=== PATIENT | female | born 1940 | race Caucasian/White ===

== ENCOUNTER 2019-05-06 08:22 | Outpatient (CLI) | payer OTHER, SELFPAY ==
--- NOTE | ~2019-05-06 | US_ITS ---
EXAMINATION: US art doppler w press LE BI DATE: 05/06/2019 09:24 INDICATION: Peripheral vascular disease. TECHNIQUE: Segmental pressures and plethysmographic and Doppler waveforms of the brachial and lower e xtremity arteries were obtained. COMPARISON: None. FINDINGS: Right and left brachial artery pressures of 150 mm Hg and 154 mm Hg, respectively, are concordant (no rmal difference <= 30 mmHg). The right high thigh pressure index is 1.20 (normal > 1.2). The left hig h thigh pressure index was unable to be obtained due to inability to occlude the vessel. The right ankle-brachial index (SUKUMAR) is 1.01 (normal >= 0.9-1). The right great toe-brachial index (T BI) is 0.75 (normal >= 0.6-0.8). The right lower extremity segmental pressure gradients are increased between the right dorsalis pedis artery and the rcudz-btu-cjeu right popliteal artery (normal gradie nts <= 20-30 mmHg between adjacent levels on the same leg or the same levels on the two legs). Arteri al waveforms are biphasic with brisk systolic upstrokes throughout. The left SUKUMAR is 0.97. The left TBI is 1.02. The left lower extremity segmental pressure gradients are increased between the left dorsalis pedis artery and the left tqxdi-yrr-twtn popliteal artery. Arter ial waveforms are biphasic with brisk systolic upstrokes throughout. IMPRESSION: 1. Normal bilateral ABIs and TBI's. No significant occlusive disease. Reviewed, dictated and finalized at location A. 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
== END 2019-05-06 08:23 | disposition home or self-care (01) ==
PROVIDERS: PCP Emergency Medicine; Visit Provider Emergency Medicine
DX: I73.9 Peripheral vascular disease, unspecified (principal)
CPT/HCPCS: 93923

== ENCOUNTER 2020-01-12 08:44 | Outpatient (CLI) | payer OTHER, SELFPAY ==
--- NOTE | ~2020-01-12 | MM_ITS ---
EXAMINATION: MM screening [facility] BI w ever HISTORY: Screening mammogram TECHNIQUE: Craniocaudal and mediolateral oblique 3-D tomosynthesis images were obtained and synthetic 2-D images were generated. CAD analysis was submitted and interpreted. COMPARISON: 11/18/2018, 10/24/2018, 07/31/2017, 07/04/2016 BREAST PARENCHYMAL COMPOSITION: There are scattered areas of fibroglandular density. FINDINGS: There is no evidence of suspicious mass, calcification, or architectural distortion to sugg est malignancy in either breast. There has been no suspicious interval change. IMPRESSION: 1. No mammographic evidence of malignancy. 2. Recommend routine screening mammography in one year. BI-RADS Category 1: Negative Reviewed, dictated and finalized at location A. E RUNNER
--- NOTE | ~2020-01-12 | DEXA_ITS ---
Bone Density Report Name: Tawana Cohen Age: 79 Sex: Female Ethnicity: White Date of : 1940 Indication: postmenopausal osteoporosis; monitoring treatment; height loss; prior fracture; Referring Provider: ANGELITO DAN Study: Bone densitometry was performed. Exam Date: January 12, 2020 Accession number: [id number] Bone Density: Region BMD T-score Z-score Classification AP Spine (L1-L4) 0.849 -1.8 0.9 Osteopenia Femoral Neck (Left) 0.644 -1.8 0.5 Osteopenia Total Hip (Left) 0.747 -1.6 0.5 Osteopenia Total Hip Bilateral Avg 0.751 -1.6 0.5 Osteopenia Femoral Neck (Right) 0.783 -0.6 1.7 Normal Total Hip (Right) 0.754 -1.5 0.5 Osteopenia World Health Organization criteria for BMD impression classify patients as: Normal (T-score at or above -1.0), Osteopenia (T-score between -1.0 and -2.5), or Osteoporosis (T-score at or below -2.5). 10-year Fracture Risk: FRAX not reported because: Treated for osteoporosis Previous Exams: Region Exam Age BMD T-score BMD Change BMD Change Date g/cm2 vs Baseline vs Previous AP Spine(L1-L4) 01/12/2020 79 0.849 -1.8 0.085(11.1%)# 0.085(11.1%)# 02/14/2008 67 0.764 -2.6 Total Hip(Left) 01/12/2020 79 0.747 -1.6 -0.004(-0.6%)# -0.004(-0.6%)# 02/14/2008 67 0.752 -1.6 Total Hip(Right) 01/12/2020 79 0.754 -1.5 -0.073(-8.8%)# -0.073(-8.8%)# 02/14/2008 67 0.827 -0.9 *Denotes significance at 95% confidence level, LSC for AP Spine = 0.022 g/cm2, LSC for Total Hip = 0.027 g/cm2 Clinical Information Provided by Patient: Has had a low trauma fracture Smokes Is being treated for osteoporosis Has used the following medications: Fosamax (i.e. alendronate) Patient maximum height was 63 Menopause Age: 49 Drinks caffeinated beverages Onset of menses at age 12 Number of children 5 Impression: The patient has low bone mass, based on the Total Spine T-score. The patient has risk factors, including: smoking, previous fracture. No significant bone loss was observed. Discussion: PATIENT UNDER TREATMENT WITH NO SIGNIFICANT BMD LOSS SINCE LAST EXAM. In an untreated patient, BMD typically declines with age. A lack of decline or gain is usually a sign that treatment is efficacious and fracture risk is reduced. It is important to ask patients whether they are taking their medications and to encourage continued and appropriate compliance with their osteoporosis therapies to reduce fracture risk. It is also impor
== END 2020-01-12 08:45 | disposition home or self-care (01) ==
LOC: ANHIMG 08:46
PROVIDERS: PCP Emergency Medicine; Visit Provider Emergency Medicine
DX: Z12.31 Encounter for screening mammogram for malignant neoplasm of breast (principal); Z78.0 Asymptomatic menopausal state; M85.89 Other specified disorders of bone density and structure, multiple sites
CPT/HCPCS: 77063; 77067; 77080

== ENCOUNTER 2020-06-07 14:58 | Outpatient (CLI) | payer OTHER, SELFPAY ==
--- NOTE | ~2020-06-07 | XR_ITS ---
EXAMINATION: XR wrist RT 2V EXAM DATE: 06/07/2020 15:21 INDICATION: S69.90XA - Unspecified injury of unspecified right wrist, hand. Initial encounter. TECHNIQUE: Frontal and lateral projections of the right wrist. There is no prior study for comparis on. FINDINGS: There is mildly widened right scapholunate joint space, at least partial dissociation. Thi s is most likely chronic but no prior study to determine. There is mild to moderate triscaphe, 1st ca rpometacarpal and 3rd MCP primary osteoarthritis. There are no bony erosions identified. There are no acute fractures or dislocations identified. There is no subcutaneous gas. The soft tissue is unrem arkable. There are no radiopaque foreign bodies. IMPRESSION: 1. 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 2. Mild to moderate polyarticular osteoarthritis as above. Reviewed, dictated and finalized at location A.
--- NOTE | ~2020-06-07 | XR_ITS ---
EXAMINATION: XR shoulder RT min 2V EXAM DATE: 06/07/2020 15:22 INDICATION: Initial encounter following injury, with pain of the right shoulder, upper arm TECHNIQUE: The following right shoulder projections obtained: frontal projection with internal rotati on, frontal projection with external rotation, Grashey, and scapular Y view (4+ views). Comparison is made to prior examination from 10/25/2009. FINDINGS: No evidence of right shoulder rotator cuff calcific tendinosis. There is mild glenohumer al, moderate acromioclavicular joint primary osteoarthritis. There are no acute fractures or dislocat ions identified. There is no subcutaneous gas. The soft tissue is unremarkable. There are no radi opaque foreign bodies. Compared to 2009, some progression in the osteoarthritis. IMPRESSION: 1. Right shoulder exam without acute osseous findings. 2. Osteoarthritis. Reviewed, dictated and finalized at location A.
== END 2020-06-07 14:59 | disposition home or self-care (01) ==
LOC: ANHIMG 15:04
PROVIDERS: PCP Emergency Medicine; Visit Provider Emergency Medicine
DX: M19.011 Primary osteoarthritis, right shoulder (principal); M19.031 Primary osteoarthritis, right wrist
CPT/HCPCS: 73030; 73100

== ENCOUNTER 2020-06-18 14:50 | Outpatient (CLI) | payer OTHER, SELFPAY ==
--- NOTE | ~2020-06-18 | MR_ITS ---
EXAMINATION: MR shoulder RT wo con DATE: 06/18/2020 15:42 INDICATION: Right shoulder pain post fall TECHNIQUE: Magnetic resonance imaging (MRI) of the right shoulder was performed without intravenous c ontrast. Sequences included axial PD-weighted FS FSE, coronal oblique PD-weighted FS FSE, coronal obl ique T2-weighted FS FSE, sagittal PD-weighted FS FSE, and sagittal T1-weighted SE. COMPARISON: None. FINDINGS: Coracoacromial arch: The acromion undersurface is curved in morphology (type II). Small anterior subacromial spur at the i nsertion of the otherwise normal coracoacromial ligament. Moderate acromioclavicular osteoarthritis. Rotator cuff: Severe supraspinatus, moderate infraspinatus and mild subscapularis tendinopathy. Small full-thicknes s tear measuring 6 mm AP and medial lateral near the superior facet footplate of the supraspinatus te ndon with small amount of residual frayed tendon material at the footplate. The teres minor tendon is normal. Normal rotator cuff muscle bulk and signal. Biceps tendon, glenoid labrum and glenohumeral cartilage: Long head of the biceps tendon is normal. Glenoid labrum is normal. Mild partial thickness cartilage loss with smooth chondral surface along the apex and inferomedial margin of the humeral head. Glenoid cartilage is normal. Fluid: Moderate-sized glenohumeral joint effusion with proportional extension of fluid into the long head bi ceps tendon sheath, deep subscapular bursa and into the subacromial/subdeltoid bursa through the full -thickness rotator cuff tear. No loose osteochondral bodies. Bones: Mild marrow edema and degenerative cystic change along the greater tuberosity footplate of the supras pinatus and infraspinatus tendons likely related to chronic rotator cuff disease. Marrow signal is ot herwise normal. No fracture or pathologic marrow replacing process. IMPRESSION: 1. Severe supraspinatus tendinopathy with small full-thickness tear near its superior facet footplate . 2. Mild glenohumeral and moderate acromioclavicular osteoarthritis. 3. Moderate sized glenohumeral joint effusion with extension through the rotator cuff tear into the s ubacromial/subdeltoid bursa. Reviewed, dictated and finalized at location A. IMPRESSION: 1. Severe supraspinatus tendinopathy with small full-thickness tear near its kendrick perior facet footplate. 2. Mild glenohumeral and moderate acromioclavicular osteoarthritis. 3. Moderate sized glenohumeral joint effusion with extension through the rotato r cuff tear into the subacromial/subdeltoid bursa.
== END 2020-06-18 14:51 | disposition home or self-care (01) ==
PROVIDERS: PCP Emergency Medicine; Visit Provider Emergency Medicine
DX: S49.90XA Unspecified injury of shoulder and upper arm, unspecified arm, initial encounter (principal); M25.519 Pain in unspecified shoulder; M75.81 Other shoulder lesions, right shoulder; M75.101 Unspecified rotator cuff tear or rupture of right shoulder, not specified as traumatic; M19.011 Primary osteoarthritis, right shoulder; M25.411 Effusion, right shoulder
CPT/HCPCS: 73221

== ENCOUNTER 2020-08-19 10:24 | Emergency (ER) | payer OTHER, SELFPAY ==
--- NOTE | ~2020-08-19 | XR_ITS ---
EXAMINATION: XR tibia fibula LT 2V, XR foot LT min 3V DATE: 08/19/2020 11:02 INDICATION: Pain at the anterolateral distal left tibia/fibula and pain and bruising at the lateral l eft foot post fall 4 days prior TECHNIQUE: 1. Anteroposterior and lateral views of the affected tibia and fibula were obtained. 2. Dorsal plantar, lateral and 2 oblique views of the left foot were obtained. COMPARISON: None. FINDINGS: Bone alignment is normal from the left knee through the left foot and ankle. There are couple tiny os sific densities at the tip of the lateral malleolus which could represent either heterotopic ossifica tion related to chronic sprain or small age-indeterminate avulsion fracture fragments. No other lesio ns suspicious for fracture identified. Mild polyarticular osteoarthritis involving multiple joints th roughout the left foot. Joint spaces appear grossly preserved at the left knee and ankle on nonweight bearing imaging. No left knee or ankle joint effusions. Soft tissue swelling at the medial side of th e knee and along the lateral aspect of the distal lower leg and ankle. IMPRESSION: 1. A couple tiny ossific densities at the tip of the lateral malleolus which could represent either h eterotopic ossification related to chronic sprain or small minimally distracted age-indeterminate avu lsion fracture fragments. No other acute osseous abnormality. 2. Mild polyarticular osteoarthritis involving multiple joints throughout the left foot. Reviewed, dictated and finalized at location A. IMPRESSION: 1. A couple tiny ossific densities at the tip of the lateral malleolus which co uld represent either heterotopic ossification related to chronic sprain or smal l minimally distracted age-indeterminate avulsion fracture fragments. No other acute osseous abnormality. 2. Mild polyarticular osteoarthritis involving multiple joints throughout the l eft foot.
[2020-08-19 10:36] VITALS: BP 112/69; PULSE 74; RESP 16; TEMP 36.7; O2SAT 100
--- NOTE | 2020-08-19 10:42 | ED.LOWEXIN ---
HPI - Extremity Injury (Lower) General Chief Complaint: Extremity Injury, Lower Stated Complaint: lt ankle/foot injury Time Seen by Provider: 08/19/20 10:37 Source: patient and RN notes reviewed Mode of arrival: ambulatory History of Present Illness HPI Narrative: 79-year-old female presents to the [facility] with complaints of left lower extremity bruising, left ankle swelling after stepping in a hole and rolling her ankle on Sunday, 4 days ago. Sensation intact toes, lateral, medial aspect of foot. Positive pedal pulse. Significant bruising is noted from her toes all the way up to mid calf. Tenderness to the lateral malleolus and mid fifth metatarsal. With a cane, which she normally does. Related Data Home Medications Medication Instructions Recorded Confirmed Lactobacillus acidophilus 10 See Rx Instructions .ROUTE 02/14/19 08/19/20 billion cell capsule .COMPLEX cap ascorbic acid (vitamin C) 1,000 mg See Rx Instructions .ROUTE .COMPLEX 02/14/19 08/19/20 tablet,extended release aspirin 81 mg chewable tablet 81 mg PO DAILY 02/14/19 08/19/20 blood sugar diagnostic #10 each 02/14/19 08/19/20 fish oil-dha-epa 1,200 mg-144 1 cap PO DAILY cap 02/14/19 08/19/20 mg-216 mg capsule glucosamine sulfate 500 mg capsule 500 mg PO BID 02/14/19 08/19/20 lancets #50 each 02/14/19 08/19/20 multivitamin 1 tablet PO DAILY 02/14/19 08/19/20 vitamins A,C,F-avxw-yczavw 7,160 2 tablet PO BID 02/14/19 08/19/20 unit-113 mg-100 unit tablet calcium carbonate 600 mg calcium 600 mg PO BID 01/02/20 08/19/20 (1,500 mg) tablet gelatin See Rx Instructions PO .COMPLEX 06/24/20 08/19/20 latanoprost 0.005 % eye drops 1 drp EACH EYE DAILY 06/24/20 08/19/20 Allergies Allergy/AdvReac Type Severity Reaction Status Date / Time No Known Allergies Allergy Verified 08/19/20 10:35 Review of Systems Review of Systems: All systems reviewed & are unremarkable except as noted in HPI and below Constitutional: Constitutional: Reports no additional constitutional complaints, Denies chills, Denies fatigue, Denies fever(s) and Denies weakness Cardiovascular: Cardiovascular: Reports no additional cardiovascular complaints and Denies chest pain Respiratory: Respiratory: Reports no additional respiratory complaints, Denies cough, Denies dyspnea and Denies wheezing Musculoskeletal: Musculoskeletal: Reports as per HPI, Reports arthralgias (Left ankle) and Reports joint swelling (Left ankle and foot) Integumentary/Breasts: Skin/Breast: Reports as per HPI and Denies rash Comments: Bruising mid calf to to her toes Neurologic: Reports system reviewed and no additional complaints, except as documented, Denies dizziness, Denies syncope, Denies headache(s), Denies focal weakness, Denies numbness and Denies weakness Psychiatric: Psychiatric: Reports no additional psychiatric complaints Endocrine: Endocrine: Reports no additional endocrine complaints Allergic/Immunologic: Allergic/Immunologic: Reports no additional allergic/immunologic complaints PMFSH Past Medical History Medical History Arthritis Corneal dystrophy Diabetes mellitus HTN (hypertension) Osteoporosis Right rotator cuff tendinitis Wears glasses Weight gain Surgical History Surgical History History of appendectomy History of bilateral cataract extraction History of cholecystectomy Family History Family History Sibling Family history of lung cancer, Onset Age: 68 Family history of heart disease in male family member before age 55 Cerebrovascular accident, Onset Age: 84 Father Family history of malignant neoplasm of bone, Onset Age: 66 Patient's father is Family history of malignant neoplasm of brain, Onset Age: 66 Other Arthritis Depression Heart disease Hypertension Social History Socia
== END 2020-08-19 11:48 | disposition home or self-care (01) ==
PROVIDERS: Emergency Provider Nurse Practitioner; PCP Emergency Medicine
DX: S82.65XA Nondisplaced fracture of lateral malleolus of left fibula, initial encounter for closed fracture (principal); S92.355A Nondisplaced fracture of fifth metatarsal bone, left foot, initial encounter for closed fracture; X50.9XXA Other and unspecified overexertion or strenuous movements or postures, initial encounter; F41.9 Anxiety disorder, unspecified; H18.509 Unspecified hereditary corneal dystrophies, unspecified eye; E11.9 Type 2 diabetes mellitus without complications; I10 Essential (primary) hypertension; M81.0 Age-related osteoporosis without current pathological fracture; Z98.42 Cataract extraction status, left eye; Z98.41 Cataract extraction status, right eye; F17.210 Nicotine dependence, cigarettes, uncomplicated
CPT/HCPCS: 29515; 73590; 73630; 99214; G0463

== ENCOUNTER 2021-06-27 10:05 | Outpatient (CLI) | payer OTHER, SELFPAY ==
--- NOTE | ~2021-06-27 | MM_ITS ---
EXAMINATION: MM screening [facility] BI w ever HISTORY: Screening TECHNIQUE: Craniocaudal and mediolateral oblique 3-D tomosynthesis images were obtained and synthetic 2-D images were generated. CAD analysis was submitted and interpreted. COMPARISON: Comparison to multiple prior studies sequentially, with oldest reviewed study dated 04/2016. BREAST PARENCHYMAL COMPOSITION: There are scattered areas of fibroglandular density. FINDINGS: There is no evidence of suspicious mass, calcification, or architectural distortion to sugg est malignancy in either breast. There has been no suspicious interval change. IMPRESSION: 1. No mammographic evidence of malignancy. 2. Recommend routine screening mammography in one year. BI-RADS Category 1: Negative Reviewed, dictated and finalized at location A.
== END 2021-06-27 10:06 | disposition home or self-care (01) ==
LOC: ANHIMG 10:06
PROVIDERS: PCP Emergency Medicine; Visit Provider Emergency Medicine
DX: Z12.31 Encounter for screening mammogram for malignant neoplasm of breast (principal)
CPT/HCPCS: 77063; 77067

== ENCOUNTER → 2022-01-12 09:32 | Outpatient (CLI) | payer OTHER, SELFPAY ==
--- NOTE | ~2022-01-12 | DEXA_ITS ---
Bone Density Report Name: KANIKA HEARN I Age: 81 Sex: Female Ethnicity: White Date of : 1940 Indication: postmenopausal osteoporosis; monitoring treatment; height loss; prior fracture; Referring Provider: ANGELITO DAN Study: Bone densitometry was performed. Exam Date: January 12, 2022 Accession number: [id number] Bone Density: Region BMD T-score Z-score Classification AP Spine (L1-L4) 0.877 -1.5 1.2 Osteopenia Femoral Neck (Left) 0.634 -1.9 0.5 Osteopenia Total Hip (Left) 0.772 -1.4 0.8 Osteopenia Femoral Neck (Right) 0.819 -0.3 2.1 Normal Total Hip (Right) 0.832 -0.9 1.3 Normal Total Hip Mean 0.802 -1.2 1.1 Osteopenia World Health Organization criteria for BMD impression classify patients as: Normal (T-score at or above -1.0), Osteopenia (T-score between -1.0 and -2.5), or Osteoporosis (T-score at or below -2.5). 10-year Fracture Risk: FRAX not reported because: Treated for osteoporosis Previous Exams: Region Exam Age BMD T-score BMD Change BMD Change Date g/cm2 vs Baseline vs Previous AP Spine(L1-L4) 01/12/2022 81 0.877 -1.5 0.075* 0.101* 12/17/2017 77 0.776 -2.5 -0.026* -0.023* 08/11/2015 74 0.799 -2.3 -0.003 -0.003 11/02/2010 69 0.802 -2.2 Total Hip(Left) 01/12/2022 81 0.772 -1.4 0.010 0.043* 12/17/2017 77 0.729 -1.7 -0.033* -0.007 08/11/2015 74 0.736 -1.7 -0.026 -0.026 11/02/2010 69 0.762 -1.5 Total Hip(Right) 01/12/2022 81 0.832 -0.9 0.004 0.053* 12/17/2017 77 0.779 -1.3 -0.050* -0.011 08/11/2015 74 0.790 -1.2 -0.038* -0.038* 11/02/2010 69 0.829 -0.9 *Denotes significance at 95% confidence level, LSC for AP Spine = 0.022 g/cm2, LSC for Total Hip = 0.027 g/cm2 Clinical Information Provided by Patient: Has had a low trauma fracture Is being treated for osteoporosis Has used the following medications: Fosamax (i.e. alendronate), Vitamin D, Calcium Patient maximum height was 63 Menopause Age: 48 Does not regularly consume dairy products Drinks caffeinated beverages Onset of menses at age 13 Number of children 5 Impression: The patient has low bone mass, based on the Left Femoral Neck T-score. The patient has risk factors, including: previous fracture. No significant bone loss was observed. Discussion: ALDO
== END ==
PROVIDERS: PCP Emergency Medicine; Visit Provider Emergency Medicine
DX: Z78.0 Asymptomatic menopausal state (principal); M85.89 Other specified disorders of bone density and structure, multiple sites
CPT/HCPCS: 77080

== ENCOUNTER 2022-08-11 08:49 | Inpatient (IN) | payer OTHER, SELFPAY ==
[2022-08-11] VITALS (7 sets, daily range): BP systolic 137–163; BP diastolic 54–84; PULSE 59–98; RESP 14–19; TEMP 36.2–36.5; O2SAT 98–100
--- NOTE | ~2022-08-11 | CT_ITS ---
EXAMINATION: CT abdomen pelvis w con DATE: 08/11/2022 10:03 INDICATION: Abdominal pain. Blood in stool. TECHNIQUE: Computed tomography (CT) of the abdomen and pelvis was performed with 100 mL Omnipaque 350 intravenous contrast. Automated exposure control and iterative reconstruction technique were employe d. The dose-length product was 409.03 mGy-cm. COMPARISON: None. FINDINGS: The visualized portions of the lung bases demonstrate mild atelectasis. No pleural effusion . The heart size is normal. There are coronary artery calcifications. No pericardial effusion. There is mild intrahepatic biliary duct dilatation, likely secondary to cholecystectomy. The spleen, pancre as, and adrenal glands are normal. There are cysts in the kidneys measuring up to 1.4 cm on the left. There is calcified atherosclerosis of the aorta and many of the other arteries. 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 There is no significant stenosis of superior mesenteric artery or infer ior mesenteric artery. There are scattered diverticula in the colon. There is wall thickening of the sigmoid colon and descending colon with adjacent mild fat stranding, consistent with colitis. There a re no dilated loops of bowel. The appendix is not visualized. There are no pathologically enlarged ly mph nodes. There is no free intraperitoneal fluid. There is severe lumbar spondylosis. IMPRESSION: 1. Colitis involving descending and sigmoid colon. Reviewed, dictated and finalized at location A.
--- NOTE | 2022-08-11 09:10 | ED.GENADULT ---
HPI - General Adult General Chief complaint: GI Bleed Stated complaint: abd pain, GI bleed, nausea Time Seen by Provider: 08/11/22 08:54 Source: patient Mode of arrival: ambulatory Limitations: no limitations History of Present Illness HPI narrative: This 81-year-old female patient with significant past medical history of diverticulosis, diabetes mellitus 2, hypertension and hyperlipidemia presents to the emergency room independently ambulatory without deficits with complaints of having a history of 1 week of abdominal pain that is across the lower abdomen without radiation to the back. She endorses that the pain has gradually increased in intensity and has now become constant, sharp and unrelenting. She currently rates her pain is a 7/10. There is no radiation of the pain. This morning when she had a bowel movement she noted bright red blood in the toilet. She has had accompanying nausea, vomiting and diarrhea. She has been afebrile at home subjectively and has no chest pain, dyspnea or urinary complaints of burning, urgency or frequency. No known ill contacts and she has not eaten any new foods specifically with seads. Related Data Home Medications Medication Instructions Recorded Confirmed Lactobacillus acidophilus 10 See Rx Instructions .Route .COMPLEX 02/14/19 04/27/21 billion cell capsule (Probiotic) ascorbic acid (vitamin C) 1,000 mg See Rx Instructions .Route .COMPLEX 02/14/19 04/27/21 tablet,extended release aspirin 81 mg chewable tablet 81 mg PO DAILY 02/14/19 04/27/21 blood sugar diagnostic (Contour #10 ea 02/14/19 04/27/21 Next Test Strips) fish oil-dha-epa 1,200 mg-144 1 cap PO DAILY 02/14/19 04/27/21 mg-216 mg capsule glucosamine sulfate 500 mg capsule 500 mg PO BID 02/14/19 04/27/21 lancets (Microlet Lancet) #50 ea 02/14/19 04/27/21 multivitamin 1 tablet PO DAILY 02/14/19 04/27/21 vitamins A,C,K-gwkf-lozwyt 2,148 2 tablet PO BID 02/14/19 04/27/21 mcg-113 mg-45 mg-17.4 mg tablet (PreserVision AREDS) calcium carbonate 600 mg calcium 600 mg PO BID 01/02/20 04/27/21 (1,500 mg) tablet gelatin See Rx Instructions PO .COMPLEX 06/24/20 04/27/21 latanoprost 0.005 % eye drops 1 drp EACH EYE DAILY 06/24/20 04/27/21 Allergies Allergy/AdvReac Type Severity Reaction Status Date / Time No Known Allergies Allergy Verified 08/11/22 09:04 Review of Systems Review of Systems: Twelve point review of systems was obtained and is negative with exception what is noted in HPI. 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 Diabetes mellitus Fracture of one rib of left side HTN (hypertension) Hyperglycemia Left hip pain Osteoporosis Other chronic pain Right rotator cuff tendinitis Skin lesion Trochanteric bursitis, right hip Vitamin D deficiency Wears glasses Weight gain Surgical History Surgical History History of appendectomy History of bilateral cataract extraction History of cholecystectomy Family History Family History Sibling Family history of lung cancer, Onset Age: 68 Family history of heart disease in male family member before age 55 Cerebrovascular accident, Onset Age: 84 Father Family history of malignant neoplasm of bone, Onset Age: 66 Patient's father is Family history of malignant neoplasm of brain, Onset Age: 66 Mother Arthritis Other Depression Heart disease Hypertension Social History Social History (R
[2022-08-11 09:29] LABS: Appearance Urine Clear (Clear); Bacteria Urine None Seen /hpf; Bilirubin Urine Negative (Negative); Blood Urine 2+ (Negative); Color Urine Dark Yellow (Yellow); Glucose Urine UA Trace mg/dL (Negative); Ketones Urine 1+ mg/dL (Negative); Leukocyte Esterase Ur Negative LEU/UL (Negative); Nitrate Urine Negative (Negative); Non Pathogenic Casts 0-2; Protein Urine Trace mg/dL (Negative); Specific Grav Ur 1.023 (1.001-1.035); Squamous Epithelial Cell Urine None seen /hpf (Few); Urobilinogen Urine 0.2 mg/dL (<2.0); WBC Urine 0-5 /hpf; pH Urine 5.5 (5.0-9.0)
[2022-08-11 09:34] LABS: Basophils Absolute Auto 0.1 K/mm3 (0.0-0.1); Basophils Percent Auto 0.4 % (0.2-1.2); Eosinophils Percent Auto 0.2 % (0-4.4); Hematocrit 44.2 % (37.0-47.0); Hemoglobin 14.5 g/dL (12.0-15.0); Immature Granulocyte Absolute 0.11 K/mm3 (0.00-0.031); Immature Granulocyte Percent A 0.8 % (0-0.5); Lymphocytes Absolute Auto 2.15 K/mm3 (0.9-3.2); Mean Corpuscular HGB Conc 32.8 g/dl (32-36); Mean Corpuscular Hemoglobin 30.9 pg (26-34); Mean Corpuscular Volume 94.2 fl (80-100); Mean Platelet Volume 11.6 fl (7.4-10.4); Monocytes Absolute Auto 0.9 K/mm3 (0.1-0.6); Monocytes Percent Auto 6.5 % (2.6-8.5); Neutrophils Percent Auto 77.1 % (45.5-73.1); Platelet Count Result 279 k/mm3 (150-375); Red Blood Count 4.69 M/mm3 (4.2-5.4); Red Cell Distribution Width 12.5 % (11.5-14.5); White Blood Count 14.3 K/mm3 (4.5-10.0)
[2022-08-11 09:37] LABS: Add Urine Microscopic? YES
[2022-08-11 09:41] LABS: Alanine Aminotransferase 27 U/L (6-35); Albumin Level 4.7 g/dL (3.5-5.1); Alkaline Phosphatase 69 U/L (38-126); Anion Gap 7 mmol/L (8-16); Aspartate Amino Transferase 33 U/L (14-36); Bilirubin,Total 0.8 mg/dL (0.2-1.3); Blood Urea Nitrogen 23 mg/dL (7-17); Calcium 9.3 mg/dL (8.4-10.2); Carbon Dioxide 28 mmol/L (22-30); Chloride 103 mmol/L (98-107); Estimated CRCL calculation 39 ml/min; Estimated Glomerular Filt Rate 60; Glucose 217 mg/dL (65-110); Lipase 99 U/L (23-300); Potassium 3.7 mmol/L (3.4-5.0); Sodium 138 mmol/L (137-145)
[2022-08-11 09:50] LABS: INR 0.9; Prothrombin Time 12.2 Seconds (11.1-14.7)
[2022-08-11 09:51] LABS: Partial Thromboplastin Time 27.2 SECONDS (22.3-36.8)
[2022-08-11] MEDS: SODIUM CHLORIDE 0.9% IV 1,000 ML 999 ML IV CONT (10:05)
[2022-08-11] MEDS: ONDANSETRON INJ 4 MG/2 ML VIAL IV PUSH (10:06)
[2022-08-11] MEDS: fentaNYL CITRATE INJ (*CRX) 100 MCG/2 ML VIAL 25 MCG IV PUSH (10:06)
[2022-08-11] MEDS: PIPERACILLN/TAZ 3.375GM/NS50ML 3.375 GM/50 ML BAG IVPB ×2 (10:38→20:43)
[2022-08-11 13:01] LABS: Glucose Point of Care 97 mg/dl (65-105)
--- NOTE | 2022-08-11 13:03 | ADMGEN ---
This patient, Tawana Cohen, was admitted to 3 [facility] Surg Room 316-02. Patient/family oriented to hospital policies and general routines including ID bracelet, bed and alarms, visiting hours, pain management, procedures, bathroom and other care routines, personal items, smoking policy, room service/diet, and visiting hours. Information on how to activate the Rapid Response Team has been discussed. Patient/Family are encouraged to report perceived risks to care and to ask questions if they do not understand what they are told or what they should do.
[2022-08-11] MEDS: SODIUM CHLORIDE 0.9% IV 1,000 ML 125 ML IV CONT (13:34)
--- NOTE | 2022-08-11 14:41 | PM.IMHP ---
H&P: HPI History of Present Illness Date/Time: 08/11/22 15:30 Chief Complaint: Abdominal pain and rectal bleeding. Narrative: This is an 81-year-old female with history of diverticulosis, type 2 diabetes mellitus, hypertension, and hyperlipidemia presented to the emergency department via private vehicle from home for evaluation of abdominal pain and rectal bleeding. She has not been feeling well for approximately 1 week with fairly constant and nonradiating lower abdominal cramping which is occasionally sharp and shooting in nature, rated 7/10 at the worst. She reports alternating issues with constipation and diarrhea in the same time frame; she typically has 1 normal bowel movement a day. Last night her symptoms seemed to worsen and she was up to the bathroom 4 or 5 times though she only passed a small amount of loose stools each time. She did not sleep well due to her symptoms and she reports having nausea and cold sweats overnight. She had some bloating earlier on this week but that has since improved. She has had some episodes of nonbloody and nonbilious emesis as well. This morning she had bright red blood in the stool and she came in for evaluation. She denies straining to have bowel movements. She denies recent travel, recent antibiotic use, sick contacts. She has never had similar symptoms. In the ED: She has been afebrile with stable vital signs. Pertinent labs include a WBC count of 14.3, electrolytes, BUN 23, creatinine 0.80, glucose 217. Coags, LFTs, and electrolytes were normal. CT of the abdomen and pelvis showed colitis involving the descending and sigmoid colon. She was given a dose of Zosyn and she is being admitted in this setting for IV antibiotics. Review of Systems Review of Systems: Twelve systems were reviewed and are negative except for as per HPI. [facility] Past Medical History Medical History (Updated 08/11/22 @ 14:50 by Thao Caruso PA-C) Arthritis Bilateral carotid bruits Bilateral low back pain without sciatica Cerebrovascular accident (1999) No residual deficits. Corneal dystrophy Hyperlipidemia Hypertension Osteoporosis Other chronic pain Type 2 diabetes mellitus Vitamin D deficiency Wears glasses Surgical History Surgical History History of appendectomy History of bilateral cataract extraction History of cholecystectomy Family History Family History Sibling Family history of lung cancer, Onset Age: 68 Family history of heart disease in male family member before age 55 Cerebrovascular accident, Onset Age: 84 Father Family history of malignant neoplasm of bone, Onset Age: 66 Patient's father is Family history of malignant neoplasm of brain, Onset Age: 66 Mother Arthritis Other Depression Heart disease Hypertension Social History Social History Social History: Surrogate medical decision maker: Trevor Cohen, spouse. Code status: Full code. Smoking packs per day: 1 Smoking cigarettes per day: 20.0 Years smoked: 20 Smoking pack-years: 20.00 Smoking status: Former smoker Tobacco type: cigarettes Smokeless tobacco user: other Smoking end date: 03/05/07 Alcohol intake: current Drinks per week: 2 Substance use: current Substance use type: marijuana Lack of Transportation: No Lack of Food: Never True Current Housing: I Have Housing Concerned About Future Housing: No Difficulty Paying Gas/Electric Bills: No Difficulty Paying for Meds: No Currently Unemployed: No Education: Bachelor's Degree Difficulty w/ Childcare or Family Care: No Additional living arrangements comments: Lives with spouse in [place]. Spiritual care concerns: No Meds Home Medications and Allergies Home Medications Medication Instruc
[2022-08-11 15:27] LABS: Hematocrit 37.9 % (37.0-47.0); Hemoglobin 12.5 g/dL (12.0-15.0)
[2022-08-11] MEDS: ACETAMINOPHEN 325 MG TABLET 650 MG PO ×2 (16:05→23:00)
[2022-08-11 16:24] LABS: Glucose Point of Care 91 mg/dl (65-105)
[2022-08-11] MEDS: OPTI-GEN TAB 2 TABLET PO (16:50)
[2022-08-11] MEDS: CALCIUM CARBONATE (OSCAL) 500 MG TABLET PO (16:50)
[2022-08-11 16:51] LABS: Hemoglobin A1C 5.7 % (<5.7)
[2022-08-11 19:49] LABS: Glucose Point of Care 170 mg/dl (65-105)
[2022-08-11 22:01] LABS: Hematocrit 37.3 % (37.0-47.0); Hemoglobin 12.5 g/dL (12.0-15.0)
[2022-08-11] MEDS: ALPRAZolam (*CRX) 0.125 MG TABLET PO (23:56)
[2022-08-12] MEDS: SODIUM CHLORIDE 0.9% IV 1,000 ML 75 ML IV CONT (01:43)
[2022-08-12] MEDS: PIPERACILLN/TAZ 3.375GM/NS50ML 3.375 GM/50 ML BAG IVPB ×2 (05:50→13:40)
[2022-08-12 06:00] VITALS: BP 107/63; PULSE 57; RESP 14; TEMP 35.9; O2SAT 100
[2022-08-12 06:59] LABS: Hematocrit 38.2 % (37.0-47.0); Hemoglobin 12.5 g/dL (12.0-15.0); Mean Corpuscular HGB Conc 32.7 g/dl (32-36); Mean Corpuscular Hemoglobin 31.1 pg (26-34); Mean Platelet Volume 11.6 fl (7.4-10.4); Platelet Count Result 226 k/mm3 (150-375); Red Blood Count 4.02 M/mm3 (4.2-5.4); Red Cell Distribution Width 12.6 % (11.5-14.5); White Blood Count 7.7 K/mm3 (4.5-10.0)
[2022-08-12 07:12] LABS: Anion Gap 3 mmol/L (8-16); Blood Urea Nitrogen 12 mg/dL (7-17); Calcium 8.4 mg/dL (8.4-10.2); Carbon Dioxide 29 mmol/L (22-30); Chloride 109 mmol/L (98-107); Estimated CRCL calculation 39 ml/min; Estimated Glomerular Filt Rate 60; Glucose 97 mg/dL (65-110); Magnesium 2.1 mg/dL (1.6-2.3); Potassium 3.7 mmol/L (3.4-5.0); Sodium 141 mmol/L (137-145)
[2022-08-12 07:43] LABS: Glucose Point of Care 103 mg/dl (65-105)
[2022-08-12] MEDS: CALCIUM CARBONATE (OSCAL) 500 MG TABLET PO (08:44)
[2022-08-12] MEDS: MULTIVITAMINS THERAPEUTIC TAB (*BKC) 1 TABLET PO (08:44)
[2022-08-12] MEDS: amLODIPine BESYLATE 5 MG TABLET 10 MG PO (08:44)
[2022-08-12] MEDS: PANTOPRAZOLE SODIUM IV 40 MG VIAL IV PUSH (08:44)
[2022-08-12] MEDS: ASCORBIC ACID 500 MG TABLET 1000 MG PO (08:44)
[2022-08-12] MEDS: OPTI-GEN TAB 2 TABLET PO (08:44)
[2022-08-12 09:53] LABS: Glucose Point of Care 137 mg/dl (65-105)
[2022-08-12 10:12] VITALS: O2SAT 96
--- NOTE | 2022-08-12 10:37 | PM.IMPN ---
Progress Note: A&P Assessment and Plan (1) Colitis: Code(s): K52.9 - Noninfective gastroenteritis and colitis, unspecified Status: Acute Assessment and Plan: The patient presented to the emergency department for evaluation of lower abdominal discomfort, diarrhea, and bright red blood in her stools since last night as detailed above. White blood cell count elevated on arrival at 14.3. CT scan showed colitis involving the descending and sigmoid colon IV Zosyn initiated. Stool studies have been ordered and they are pending. Rectal bleeding is likely related to the colitis and she has not had any significant episodes of hematochezia since arrival. Hemoglobin and hematocrit stable and continue to monitor. [place] diet (2) Rectal bleeding: Code(s): K62.5 - Hemorrhage of anus and rectum Status: Acute Assessment and Plan: Rectal exam performed in the ED and no hemorrhoids were noted. If H&H falls or if bleeding continues will consider GI consultation. See above (3) Type 2 diabetes mellitus: Code(s): E11.9 - Type 2 diabetes mellitus without complications Status: Acute Assessment and Plan: Initiate sliding scale insulin, Accu-Cheks, and hypoglycemic protocol. (4) Hypertension: Code(s): I10 - Essential (primary) hypertension Status: Acute Assessment and Plan: Her blood pressures have been stable and we will continue with her antihypertensives. Plan Home medications will be reviewed and resumed as appropriate. Subjective Date/time seen: 08/12/22 10:37 Interval history: Patient feeling much better today. Patient states her abdominal pain has greatly improved although it still lingers. She is having lower abdominal pain near the suprapubic to left lower quadrant area. She describes the pain as cramping in sensation. She has had a loose bowel movement today but states that there was no blood. She denies any nausea vomiting. White blood cell count has normalized today. Review of Systems Review of Systems: All systems reviewed & are unremarkable except as noted in HPI and below Exam Narrative: GENERAL: Comfortable, no acute distress HENMT: moist mucous membranes EYES: EOM intact b/l NECK: no lymphadenopathy RESPIRATORY: clear to auscultation CARDIO: RRR GI: soft, mild suprapubic and left lower quadrant tenderness, bowel sounds present SKIN: no rashes EXTREMITIES: no edema, redness or tenderness Objective Data Vital Signs Vital Signs: Vital Signs - 24 hr 08/11/22 10:38 06/09/23 12:19 08/11/22 13:00 Temperature 97.3 F L Pulse Rate 66 84 67 Respiratory Rate 19 16 14 Blood Pressure 146/77 H 138/84 155/71 H Pulse Oximetry 100 98 99 Oxygen Delivery 08/11/22 12:51 08/11/22 14:00 08/11/22 21:45 Temperature 97.1 F L 97.4 F L Pulse Rate 65 59 L Respiratory Rate 16 14 Blood Pressure 142/54 H 137/54 L Pulse Oximetry 100 99 Oxygen Delivery Room Air 08/11/22 20:20 08/12/22 06:00 08/12/22 10:12 Temperature 96.7 F L Pulse Rate 59 L 57 L Respiratory Rate 14 14 Blood Pressure 107/63 Pulse Oximetry 99 100 96 Oxygen Delivery Room Air Room Air Intake/Output Intake/Output: Intake & Output 08/09/22 08/10/22 08/11/22 08/12/22 23:59 23:59 23:59 23:59 Intake Total 1836 1480 Output Total 350 400 Balance 1486 1080 Meds/Results Medications: Active Medications Generic Name Dose Route Start Last Admin Trade Name Freq PRN Reason Stop Dose Admin Acetaminophen 650 mg 08/11/22 14:52 08/11/22 23:00 Acetaminophen 325 Mg Tablet PO 650 mg Q6H PRN Administration Mild Pain (1-3) or Fever Amlodipine Besylate 10 mg 08/12/22 09:00 08/12/22 08:44 Amlodipine Besylate 5 Mg Tablet PO 10 mg DAILY DENISE Administration Ascorbic Acid 1,000 mg 08/12/22 09:00 08/12/22 08:44 Ascorbic Acid 500 Mg Tablet PO 09/11/22 08:59 1,000 mg DAILY DENISE Administration At
[2022-08-12 11:39] LABS: Glucose Point of Care 89 mg/dl (65-105)
[2022-08-12 12:06] LABS: Hematocrit 39.6 % (37.0-47.0); Hemoglobin 13.2 g/dL (12.0-15.0)
--- NOTE | 2022-08-12 13:44 | PM.DS ---
DS: Admitting Diagnosis Discharge Date 08/12/22 Admitting Diagnosis Colitis DS: Discharge Diagnosis Discharge Diagnosis (1) Colitis: Code(s): K52.9 - Noninfective gastroenteritis and colitis, unspecified Status: Acute Assessment and Plan: The patient presented to the emergency department for evaluation of lower abdominal discomfort, diarrhea, and bright red blood in her stools since last night as detailed above. White blood cell count elevated on arrival at 14.3. CT scan showed colitis involving the descending and sigmoid colon IV Zosyn initiated. Stool studies have been ordered and they are pending. Rectal bleeding is likely related to the colitis and she has not had any significant episodes of hematochezia since arrival. Hemoglobin and hematocrit stable and continue to monitor. [place] diet (2) Rectal bleeding: Code(s): K62.5 - Hemorrhage of anus and rectum Status: Acute Assessment and Plan: Rectal exam performed in the ED and no hemorrhoids were noted. If H&H falls or if bleeding continues will consider GI consultation. See above (3) Type 2 diabetes mellitus: Code(s): E11.9 - Type 2 diabetes mellitus without complications Status: Acute Assessment and Plan: Initiate sliding scale insulin, Accu-Cheks, and hypoglycemic protocol. (4) Hypertension: Code(s): I10 - Essential (primary) hypertension Status: Acute Assessment and Plan: Her blood pressures have been stable and we will continue with her antihypertensives. Plan Home medications will be reviewed and resumed as appropriate. DS: Summary Hospital Course Hospital Course: This is an 81-year-old female with a history of diverticulitis, diabetes, hypertension and hyperlipidemia the presented to the ED on 08/11/2022 for evaluation of abdominal pain and rectal bleeding. She has been feeling unwell for approximately 1 week prior to ED arrival. The night before arrival patient had into the bathroom for 5 times and only passed a small amount of stool. She said when she knows blood there was no stool in the toilet bowl, just blood. She does have history of hemorrhoids although MARIA LUISA in the ED did not reveal any external hemorrhoids. She had somewhat episodes of nonbloody nonbilious emesis as well. Patient did not travel recently, no recent antibiotic use and no sick contacts. In the ED had a white count of 14.3. CT abdomen pelvis showed colitis involving the descending and sigmoid colon and she was started on Zosyn. Next morning patient's white count normalized and her symptoms have resolved. She had very mild abdominal cramping and was unable to give a stool sample. She is very eager to be discharged. She has not had any more bright red blood per rectum. Her H&H has remained stable. Patient's labs and vital signs were stable she is medically clear for discharge. Time Spent with Patient Time attestation: Total time spent providing and/or coordinating discharge services: Exam Narrative: GENERAL: Comfortable, no acute distress HENMT: moist mucous membranes EYES: EOM intact b/l NECK: no lymphadenopathy RESPIRATORY: clear to auscultation CARDIO: RRR GI: soft, mild suprapubic and left lower quadrant tenderness, bowel sounds present SKIN: no rashes EXTREMITIES: no edema, redness or tenderness DS: Data Data Completed and Pending Labs on day of discharge: Labs from last 24 hours 08/12/22 08/12/22 08/12/22 12:01 11:33 07:34 WBC RBC Hgb 13.2 Hct 39.6 MCV MCH MCHC RDW Plt Count MPV Sodium Potassium Chloride Carbon Dioxide Anion Gap BUN Creatinine Estim Creat Clear Calc Estimated GFR Glucose POC Capillary Glucose 89 103 Hemoglobin A1c Calcium Magnesium 08/12/22 08/11/22 08/11/22 06:18 21:56 20:35 WBC 7.7 RBC 4.02 L Hgb 12.5 12.5 Hct 38.2 37.3 MCV 95.0
[2022-08-12 14:00] VITALS: BP 118/52; PULSE 58; RESP 16; TEMP 36; O2SAT 98
== END 2022-08-12 14:50 | disposition home or self-care (01) | DRG 392 ==
LOC: ANHED 10:34 → ANH3MEDSUR 11:32
PROVIDERS: Physician Assistant; Admitting Provider Family Medicine; Emergency Provider Nurse Practitioner Adult Health; PCP Emergency Medicine; Visit Provider Internal Medicine Critical Care Medicine
DX: K52.9 Noninfective gastroenteritis and colitis, unspecified (principal); K62.5 Hemorrhage of anus and rectum; I10 Essential (primary) hypertension; E11.9 Type 2 diabetes mellitus without complications; E78.5 Hyperlipidemia, unspecified; E55.9 Vitamin D deficiency, unspecified; K57.30 Diverticulosis of large intestine without perforation or abscess without bleeding; M19.90 Unspecified osteoarthritis, unspecified site; M81.0 Age-related osteoporosis without current pathological fracture; R09.89 Other specified symptoms and signs involving the circulatory and respiratory systems; F17.210 Nicotine dependence, cigarettes, uncomplicated; G89.29 Other chronic pain; Z79.82 Long term (current) use of aspirin
CPT/HCPCS: 36415; 74177; 80048; 80053; 81001; 82948; 83036; 83605; 83690; 83735; 85014; 85018; 85025; 85027; 85610; 85730; 86850; 86900; 86901; 96361; 96365; 96375; 99285; A9270; C9113; G0378; J2405; J2543; J3010; J7030; Q9967

== ENCOUNTER → 2023-01-04 07:09 | Outpatient (CLI) | payer OTHER, SELFPAY ==
--- NOTE | ~2023-01-04 | MM_ITS ---
EXAMINATION: MM screening [facility] BI w ever HISTORY: Screening mammogram TECHNIQUE: Craniocaudal and mediolateral oblique 3-D tomosynthesis images were obtained and synthetic 2-D images were generated. CAD analysis was submitted and interpreted. COMPARISON: June 27, 2021, January 12, 2020 bilateral screening mammogram examinations BREAST PARENCHYMAL COMPOSITION: There are scattered areas of fibroglandular density. November 08, 2018 left diagnostic mammogram 10/24/2018 bilateral screening mammogram FINDINGS: There is no evidence of suspicious mass, calcification, or architectural distortion to sugg est malignancy in either breast. There has been no suspicious interval change. IMPRESSION: 1. No mammographic evidence of malignancy. 2. Recommend routine screening mammography in one year. : BI-RADS Category 1: Negative Reviewed, dictated and finalized at location L.
== END ==
PROVIDERS: PCP Emergency Medicine; Visit Provider Emergency Medicine
DX: Z12.31 Encounter for screening mammogram for malignant neoplasm of breast (principal)
CPT/HCPCS: 77063; 77067

== ENCOUNTER 2023-06-12 09:20 | Emergency (ER) | payer OTHER, SELFPAY ==
[2023-06-12 09:43] VITALS: BP 136/74; PULSE 72; RESP 16; TEMP 37.4; O2SAT 97
--- NOTE | 2023-06-12 10:49 | ED.URI ---
HPI - URI/Sore Throat General Chief Complaint: Upper Respiratory Infection Stated Complaint: Sinus Infection Symptoms Time Seen by Provider: 06/12/23 10:45 Source: patient, family, RN notes reviewed and old records reviewed Mode of arrival: ambulatory Limitations: no limitations History of Present Illness HPI Narrative: 82 year old female accompanied by spouse with complaints of being ill since Sunday with fatigue, cough, nasal congestion, some body aches, with low grade fevers, rare nausea. Patient reports that spouse was ill prior to her symptoms and they just returned from [place] on vacation. Patient reports that she has been taking Tylenol and Coricidin brand decongestant MD elicited complaint: cough, rhinorrhea, nasal congestion and other (body aches) Onset (ago): day(s) (4) Severity: moderate Description of mucous: clear Able to tolerate fluids by mouth: Yes Treatments prior to arrival: acetaminophen and other (coricidin decogestant) Related Data Home Medications Medication Instructions Recorded Confirmed Lactobacillus acidophilus 10 See Rx Instructions .Route .COMPLEX 02/14/19 06/12/23 billion cell capsule (Probiotic) ascorbic acid (vitamin C) 1,000 mg 1,000 mg PO DAILY 02/14/19 06/12/23 tablet,extended release aspirin 81 mg chewable tablet 81 mg PO DAILY 02/14/19 06/12/23 blood sugar diagnostic (Contour #10 ea 02/14/19 02/01/23 Next Test Strips) fish oil-dha-epa 1,200 mg-144 1 cap PO DAILY 02/14/19 06/12/23 mg-216 mg capsule glucosamine sulfate 500 mg capsule 500 mg PO BID 02/14/19 06/12/23 lancets (Microlet Lancet) #50 ea 02/14/19 02/01/23 multivitamin 1 tablet PO DAILY 02/14/19 06/12/23 vitamins A,C,I-meic-dsynfk 2,148 2 tablet PO BID 02/14/19 06/12/23 mcg-113 mg-45 mg-17.4 mg tablet (PreserVision AREDS) calcium carbonate 600 mg calcium 600 mg PO BID 01/02/20 06/12/23 (1,500 mg) tablet gelatin 1 cap PO DAILY 06/24/20 06/12/23 latanoprost 0.005 % eye drops 1 drp EACH EYE DAILY 06/24/20 06/12/23 Natural Co-Q10 50 mg PO DAILY 08/11/22 06/12/23 Allergies Allergy/AdvReac Type Severity Reaction Status Date / Time yellow jacket Allergy Severe Swelling Uncoded 05/30/23 11:26 Review of Systems Review of Systems: CONSTITUTIONAL: reports malaise, chills, sweats, or fever. EYES: Denies visual changes, redness, or discharge. ENT: Reports rhinorrhea, congestion, no sinus pain, no otalgia and no sore throat. CARDIOVASCULAR: Denies chest pain, palpitations, or edema. RESPIRATORY: Reports cough.? Denies dyspnea. GASTROINTESTINAL: Denies abdominal pain, occasional nausea, no vomiting, diarrhea SKIN: Denies rash or itching. MUSCULOSKELETAL:Reports myalgia. NEUROLOGIC: Denies headache. All systems reviewed & are unremarkable except as noted in HPI and below PMFSH Past Medical History Medical History Arthritis Bilateral carotid bruits Bilateral low back pain without sciatica Cerebrovascular accident (1999) No residual deficits. Corneal dystrophy Hyperlipidemia Hypertension Osteoporosis Other chronic pain Type 2 diabetes mellitus Vitamin D deficiency Wears glasses Surgical History Surgical History History of appendectomy History of bilateral cataract extraction History of cholecystectomy Family History Family History Sibling Family history of lung cancer, Onset Age: 68 Family history of heart disease in male family member before age 55 Cerebrovascular accident, Onset Age: 84 Father Family history of malignant neoplasm of bone, Onset Age: 66 Patient's father is Family history of malignant neoplasm of brain, Onset Age: 66 Mother Arthritis Other Depression Heart disease Hypertension Social History Social History (Reviewed 06/13/23 @ 16:57 by Bridget Rivera,
== END 2023-06-12 11:25 | disposition home or self-care (01) ==
PROVIDERS: Emergency Provider Registered Nurse; PCP Emergency Medicine
DX: J10.1 Influenza due to other identified influenza virus with other respiratory manifestations (principal); Z20.822 Contact with and (suspected) exposure to COVID-19; Z87.891 Personal history of nicotine dependence; M19.90 Unspecified osteoarthritis, unspecified site; Z86.73 Personal history of transient ischemic attack (TIA), and cerebral infarction without residual deficits; E78.5 Hyperlipidemia, unspecified; I10 Essential (primary) hypertension; M81.0 Age-related osteoporosis without current pathological fracture; E11.9 Type 2 diabetes mellitus without complications; E55.9 Vitamin D deficiency, unspecified; Z98.42 Cataract extraction status, left eye; Z98.41 Cataract extraction status, right eye; R09.89 Other specified symptoms and signs involving the circulatory and respiratory systems; Z79.82 Long term (current) use of aspirin
CPT/HCPCS: 87426; 87804; 99213; G0463

== ENCOUNTER 2023-07-02 09:07 | Emergency (ER) | payer OTHER, SELFPAY ==
[2023-07-02 09:14] VITALS: BP 139/73; PULSE 71; RESP 16; TEMP 36.8; O2SAT 98
--- NOTE | 2023-07-02 09:40 | ED.GENADULT ---
HPI - General Adult General Chief complaint: Skin/Abscess/Foreign Body Stated complaint: Hives Time Seen by Provider: 07/02/23 09:40 Source: patient, RN notes reviewed and old records reviewed Mode of arrival: ambulatory Limitations: no limitations History of Present Illness HPI narrative: 82-year-old female presents to the [facility] with complaints of a rash after getting her RSV and shingles shot on . Patient is not sure if it started Sunday or Sunday. States it is getting better with calamine. No red is noted during exam. Denies any chest pain shortness of breath. No other treatment prior to arrival Discussed with patient that she is a diabetic, discussed the risk of steroids which she politely declined at this time stating that the rash is getting much better. Onset (ago): day(s) (2-3) Related Data Home Medications Medication Instructions Recorded Confirmed Lactobacillus acidophilus 10 See Rx Instructions .Route .COMPLEX 02/14/19 07/02/23 billion cell capsule (Probiotic) ascorbic acid (vitamin C) 1,000 mg 1,000 mg PO DAILY 02/14/19 07/02/23 tablet,extended release aspirin 81 mg chewable tablet 81 mg PO DAILY 02/14/19 07/02/23 blood sugar diagnostic (Contour #10 ea 02/14/19 02/01/23 Next Test Strips) fish oil-dha-epa 1,200 mg-144 1 cap PO DAILY 02/14/19 07/02/23 mg-216 mg capsule glucosamine sulfate 500 mg capsule 500 mg PO BID 02/14/19 07/02/23 lancets (Microlet Lancet) #50 ea 02/14/19 02/01/23 multivitamin 1 tablet PO DAILY 02/14/19 07/02/23 vitamins A,C,J-noza-poljok 2,148 2 tablet PO BID 02/14/19 07/02/23 mcg-113 mg-45 mg-17.4 mg tablet (PreserVision AREDS) calcium carbonate 600 mg PO BID 01/02/20 07/02/23 gelatin 1 cap PO DAILY 06/24/20 07/02/23 latanoprost 0.005 % eye drops 1 drp EACH EYE DAILY 06/24/20 07/02/23 Natural Co-Q10 50 mg PO DAILY 08/11/22 07/02/23 Allergies Allergy/AdvReac Type Severity Reaction Status Date / Time yellow jacket Allergy Severe Swelling Uncoded 05/30/23 11:26 Review of Systems Review of Systems: All systems reviewed & are unremarkable except as noted in HPI and below Constitutional: Constitutional: Reports no additional constitutional complaints Eyes: Eyes: Reports no additional eye complaints ENT: Reports system reviewed and no additional complaints, except as documented Cardiovascular: Cardiovascular: Reports no additional cardiovascular complaints, Denies chest pain and Denies dyspnea Respiratory: Respiratory: Reports no additional respiratory complaints, Denies chest congestion, Denies cough and Denies dyspnea Gastrointestinal: Gastrointestinal: Reports no additional gastrointestinal complaints, Denies abdominal pain, Denies nausea and Denies vomiting Musculoskeletal: Musculoskeletal: Reports no additional musculoskeletal complaints Integumentary/Breasts: Skin/Breast: Reports as per HPI Neurologic: Reports system reviewed and no additional complaints, except as documented Psychiatric: Psychiatric: Reports no additional psychiatric complaints Allergic/Immunologic: Allergic/Immunologic: Reports no additional allergic/immunologic complaints PMFSH Past Medical History Medical History Arthritis Bilateral carotid bruits Bilateral low back pain without sciatica Cerebrovascular accident (1999) No residual deficits. Corneal dystrophy Hyperlipidemia Hypertension Osteoporosis Other chronic pain Type 2 diabetes mellitus Vitamin D deficiency Wears glasses Surgical History Surgical History History of appendectomy History of bilateral cataract extraction History of cholecystectomy Family History Family History Sibling Family history of lung cancer, Onset Age: 68 Family history of heart disease in male family member before age 55 Cerebrovascular accident, Onset Age
== END 2023-07-02 10:06 | disposition home or self-care (01) ==
PROVIDERS: Emergency Provider Nurse Practitioner; PCP Emergency Medicine
DX: R21 Rash and other nonspecific skin eruption (principal); Z87.891 Personal history of nicotine dependence; F12.90 Cannabis use, unspecified, uncomplicated; E78.5 Hyperlipidemia, unspecified; I10 Essential (primary) hypertension; M81.0 Age-related osteoporosis without current pathological fracture; E11.9 Type 2 diabetes mellitus without complications; Z98.42 Cataract extraction status, left eye; Z98.41 Cataract extraction status, right eye; Z79.82 Long term (current) use of aspirin
CPT/HCPCS: 99211; G0463

== ENCOUNTER 2024-07-08 13:28 | Outpatient (CLI) | payer OTHER, SELFPAY ==
--- NOTE | ~2024-07-08 | MM_ITS ---
EXAMINATION: MM screening [facility] BI w ever HISTORY: Screening TECHNIQUE: Craniocaudal and mediolateral oblique 3-D tomosynthesis images were obtained and synthetic 2-D images were generated. CAD analysis was submitted and interpreted. COMPARISON: Comparison to multiple prior studies sequentially, with oldest reviewed study dated 07/31. BREAST PARENCHYMAL COMPOSITION: Not dense: There are scattered areas of fibroglandular density. FINDINGS: There is no evidence of suspicious mass, calcification, or architectural distortion to sugg est malignancy in either breast. There has been no suspicious interval change. IMPRESSION: 1. No mammographic evidence of malignancy. 2. Recommend routine screening mammography in one year. BI-RADS Category 1: Negative Reviewed, dictated and finalized at location A.
== END 2024-07-08 13:29 | disposition home or self-care (01) ==
LOC: MICIMG 13:29
PROVIDERS: PCP Emergency Medicine; Visit Provider Emergency Medicine
DX: Z12.31 Encounter for screening mammogram for malignant neoplasm of breast (principal)
CPT/HCPCS: 77063; 77067

== ENCOUNTER 2024-07-18 11:09 | Outpatient (CLI) | payer OTHER, SELFPAY ==
--- NOTE | ~2024-07-18 | DEXA_ITS ---
Bone Density Report Name: KANIKA HEARN I Age: 83 Sex: Female Ethnicity: White Date of : 1940 Indication: osteopenia; monitoring treatment; height loss; inflammatory bowel disease; Referring Provider: ANGELITO DAN Study: Bone densitometry was performed. Exam Date: July 18, 2024 Accession number: [id number] Bone Density: Region BMD T-score Z-score Classification AP Spine(L1-L4) 0.894 -1.4 1.5 Osteopenia Femoral Neck (Left) 0.660 -1.7 0.8 Osteopenia Total Hip (Left) 0.755 -1.5 0.8 Osteopenia Femoral Neck (Right) 0.764 -0.8 1.7 Normal Total Hip (Right) 0.814 -1.1 1.3 Osteopenia Total Hip Mean 0.784 -1.3 1.1 Osteopenia World Health Organization criteria for BMD impression classify patients as: Normal (T-score at or above -1.0), Osteopenia (T-score between -1.0 and -2.5), or Osteoporosis (T-score at or below -2.5). 10-year Fracture Risk: FRAX not reported because: Treated for osteoporosis Previous Exams: -- Region Exam Age BMD T-score BMD Change BMD Change Date g/cm2 vs Baseline vs Previous -- AP Spine (L1-L4) 07/18/2024 83 0.894 -1.4 11.4%* 1.9% 01/12/2022 81 0.877 -1.5 9.4%* 13.0%* 12/17/2017 77 0.776 -2.5 -3.3%* -2.9%* 08/11/2015 74 0.799 -2.3 -0.4% -0.4% 11/02/2010 69 0.802 -2.2 Total Hip(Left) 07/18/2024 83 0.755 -1.5 -0.9% -2.2% 01/12/2022 81 0.772 -1.4 1.3% 5.9%* 12/17/2017 77 0.729 -1.7 -4.3%* -1.0% 08/11/2015 74 0.736 -1.7 -3.4% -3.4% 11/02/2010 69 0.762 -1.5 Total Hip(Right) 07/18/2024 83 0.814 -1.1 -1.8% -2.2% 01/12/2022 81 0.832 -0.9 0.4% 6.8%* 12/17/2017 77 0.779 -1.3 -6.0%* -1.4% 08/11/2015 74 0.790 -1.2 -4.6%* -4.6%* 11/02/2010 69 0.829 -0.9 -- *Denotes significance at 95% confidence level, LSC for AP Spine = 0.022 g/cm2, LSC for Total Hip = 0.027 g/cm2 Clinical Information Provided by Patient: Is being treated for osteoporosis Has used the following medications: Fosamax (i.e. alendronate), Vitamin D, Calcium Has the following medical conditions: Inflammatory bowel diseases Patient maximum height was 63 Menopause Age: 48 Onset of menses at age 13 Number of children 5 Impression: The patient has low bone mass, based on the Left Femoral Neck T-score. No significant bone loss was observed. Discussion: PATIENT UNDER TREATMENT WITH NO SIGNIFICANT BMD LOSS SINCE LAST EXAM. In an untreated patient, BMD typically declines with age. A lack of decline or gain is usually a sign that treatment is efficacious and fracture risk is reduced. It is important to ask patients whether they are taking their medications and to encourage continued and appropriate compliance with their osteoporosis therapies to reduce fracture risk. It is also important to review their risk factors and encourage appropriate calcium and vitamin D intakes, exercise, fall prevention and other lifestyle measures. Follow-Up: Consider a repeat BMD and Vertebral Fracture Assessment (VFA) exam in 2 years or sooner if medically necessary, to reassess this patient's status. Reported by: MERYL on 07/23/2024 8:36:00 AM. Reviewed, dictated and finalized at location A.
== END 2024-07-18 11:10 | disposition home or self-care (01) ==
LOC: MICIMG 11:10
PROVIDERS: PCP Emergency Medicine; Visit Provider Emergency Medicine
DX: M85.89 Other specified disorders of bone density and structure, multiple sites (principal); Z78.0 Asymptomatic menopausal state
CPT/HCPCS: 77080

== ENCOUNTER 2024-09-24 10:03 | Outpatient (CLI) | payer OTHER, SELFPAY ==
--- NOTE | ~2024-09-24 | XR_ITS ---
XR sacroiliac joints min 3V 09/24/2024 10:23 Indication: Sacroiliac joint dysfunction. Procedure: 3 views sacroiliac joints Comparison: Comparison to multiple prior studies sequentially, with oldest reviewed study dated 09/27. Findings: Mild bilateral symmetric degenerative change of the sacroiliac joints. No erosive changes. No ankylosis. No fracture or traumatic malalignment. Pelvic rings intact. 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 Reviewed, dictated and finalized at location A. 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
== END 2024-09-24 10:04 | disposition home or self-care (01) ==
LOC: MICIMG 10:05
PROVIDERS: PCP Emergency Medicine; Visit Provider Physician Assistant
DX: M47.818 Spondylosis without myelopathy or radiculopathy, sacral and sacrococcygeal region (principal)
CPT/HCPCS: 72202